=== PATIENT | male | born 1990 | race Two or more races ===

== ENCOUNTER 2019-11-27 08:27 | Emergency (ER) | payer SELFPAY ==
[~2019-11-27] VITALS: Ht 180.3 cm; Wt 94.0 kg
[2019-11-27] MEDS ORDERED: LIDOCAINE HCL/PF 1% 10 MG/ML 5ML VIAL IJ ONE (10:00)
[2019-11-27] MEDS ORDERED: BACITRACIN ZINC OINT UDPKT TOP ONE (10:00)
[2019-11-27] MEDS ORDERED: IBUPROFEN 600MG TABLET PO ONE (10:45)
[2019-11-27] MEDS ORDERED: TETANUS, DIPHTHERIA, PERTUSSIS VAC/PF 0.5ML (>7YR OLD) IM ONE (11:15)
[2019-11-27 11:22] VITALS: BP 146/80
== END 2019-11-27 11:22 | disposition home or self-care (01) ==
LOC: ER 09:35
DX: S81.011A Laceration without foreign body, right knee, initial encounter (principal); W18.39XA Other fall on same level, initial encounter; Y93.89 Activity, other specified; Y92.89 Other specified places as the place of occurrence of the external cause; Y99.8 Other external cause status
CPT/HCPCS: 12002; 73562; 90471; 90715; 99283; J3490